=== PATIENT | male | born 1985 | race Two or more races ===

== ENCOUNTER 2023-01-02 21:00 | Emergency (ER) | payer OTHER ==
[~2023-01-02] VITALS: Ht 177.8 cm; Wt 118.2 kg
[2023-01-02] MEDS ORDERED: AML5T PO (21:47)
[2023-01-03 02:30] VITALS: BP 124/77
== END 2023-01-03 02:37 | disposition home or self-care (01) ==
LOC: ER 21:00
DX: I10 Essential (primary) hypertension (principal); F17.210 Nicotine dependence, cigarettes, uncomplicated
CPT/HCPCS: 93005